=== PATIENT | female | born 1990 | race African-American/Black ===

== ENCOUNTER 2016-07-21 22:29 | Emergency (ER) | payer OTHER ==
[~2016-07-21] VITALS: Ht 149.9 cm; Wt 111.6 kg
[2016-07-21 22:45] VITALS: BP 140/80
--- NOTE | 2016-07-21 23:15 | PHYS DOC ---
Past Medical History Past Medical History: Schizophrenia Past Surgical History: Other Additional Past Surgical Histo: surgical I&D R buttock Alcohol Use: Occasionally Drug Use: Marijuana Adult General Chief Complaint Chief Complaint: WOUND CHECK [facility] HPI Patient is a 25 year old female who presents with concern of wound vac failure or wound vac dressing seal failure. She had large left buttock debridement at [facility] recently and was discharged home yesterday. Her machine was making noise so she called the wound vac company and after some home triage, she was advised to seek medical attention. She did not bring any wound vac or supplies. She still has dressing applied and denies trauma or leaking from dressing. She notes expected pain after procedure to left buttock, achy, constant, worse with movement. Denies f/c, new injury, or any other concerns. Review of Systems Review of Systems Constitutional: Denies fever or chills [] Eyes: Denies change in visual acuity, redness, or eye pain [] HENT: Denies nasal congestion or sore throat [] Respiratory: Denies cough or shortness of breath [] Cardiovascular: No additional information not addressed in HPI [] GI: Denies abdominal pain, nausea, vomiting, bloody stools or diarrhea [] : Denies dysuria or hematuria [] Musculoskeletal: Denies back pain or joint pain [] Integument: Denies rash or skin lesions [] Neurologic: Denies headache, focal weakness or sensory changes [] Endocrine: Denies polyuria or polydipsia [] Allergies Allergies Allergies Coded Allergies Type Severity Reaction Last Updated Verified No Known Drug Allergies 07/21/16 No Physical Exam Physical Exam Constitutional: Well developed, well nourished, no acute distress, non-toxic appearance. [] HENT: Normocephalic, atraumatic, bilateral external ears normal, oropharynx moist, nose normal. [] Eyes: PERRLA, EOMI. [] Neck: Normal range of motion, supple. [] Cardiovascular:Heart rate regular rhythm [] Lungs & Thorax: Bilateral breath sounds clear to auscultation [] Abdomen: Bowel sounds normal, soft, no tenderness. [] Skin: Warm, dry, no erythema, no rash. Large left buttock wound vac dressing in place with no evidence of leaking or surrounding skin infection [] Back: Normal ROM. [] Extremities: ROM intact, no edema. [] Neurologic: Alert and oriented X 3, normal motor function, normal sensory function, no focal deficits noted. [] Psychologic: Affect normal, judgement normal, mood normal. [] Current Patient Data Vital Signs Vital Signs Date Time Temp Pulse Resp B/P Pulse Ox O2 Delivery O2 Flow Rate FiO2 07/21/16 22:45 98.1 71 18 140/80 96 Room Air 98.1 Course & Med Decision Making Course & Med Decision Making Seal could not be checked due to her not bringing her machine. I encouraged her to get her machine and wound vac supplies and call her on-call surgeon for help or return to the ED for help. She understood and agreed with plan. Dragon Disclaimer Dragon Disclaimer This electronic medical record was generated, in whole or in part, using a voice recognition dictation system. Departure Departure Impression: Primary Impression: Encounter for management of vacuum-assisted closure (VAC) of wound Additional Impression: Left buttock pain Disposition: 01 HOME, SELF-CARE Condition: STABLE Referrals: UNKNOWN PCP NAME (PCP) Patient Instructions: Vacuum-Assisted Closure Therapy Home Guide Additional Instructions: Call your surgeon or wound care clinic for wound VAC assistance. Return for any concerns. Problem Qualifiers Max ANDERSON MD Jul 21, 2016 23:15
== END 2016-07-21 23:20 | disposition home or self-care (01) ==
LOC: ER 22:29
DX: Z48.00 Encounter for change or removal of nonsurgical wound dressing (principal); M54.89 Other dorsalgia; F12.10 Cannabis abuse, uncomplicated
CPT/HCPCS: 99281

== ENCOUNTER 2018-11-06 10:50 | Emergency (ER) | payer OTHER ==
[~2018-11-06] VITALS: Ht 149.9 cm; Wt 102.5 kg
[2018-11-06] MEDS ORDERED: IV NORMAL SALINE 1000ML BAG 1,000 ML IV ONE (11:00)
[2018-11-06] MEDS ORDERED: ONDANSETRON PF 4 MG/2 ML VIAL. IV ONE (11:00)
[2018-11-06 11:12] LABS: BILIRUBIN,URINE MODERATE (NEG); CLARITY,URINE TURBID; NITRITE,URINE POSITIVE (NEG); PH,URINE 5.5; PROTEIN,URINE >=300 mg/dL (NEG-TRACE)
--- NOTE | 2018-11-06 11:22 | PHYS DOC ---
Past Medical History Past Medical History: Schizophrenia (ROSA ISELA FALL APRN) Past Surgical History: , Other Additional Past Surgical Histo: surgical I&D R buttock (ROSA ISELA FALL APRN) Alcohol Use: Occasionally Drug Use: Marijuana, Methamphetamine Social History Narrative: K-2 (EUFEMIAROSA ISELA FLORES) Adult General Chief Complaint Chief Complaint: ABDOMINAL PAIN HPI HPI Patient is a 28 year old female with history of schizophrenia, drug use, who presents to the ED today requesting detox from meth and K 2 use. Patient states she has use Meth and K 2 inn the last 3 days. She states she has been trying to self detox but is currently experiencing nausea, vomiting as well as left upper quadrant pain. Rates the pain as mild worse when she eats. Denies any alcohol use. (ROSA ISELA FALL APRN) Review of Systems Review of Systems Constitutional: Denies fever or chills [] Eyes: Denies change in visual acuity, redness, or eye pain [] HENT: Denies nasal congestion or sore throat [] Respiratory: Denies cough or shortness of breath [] Cardiovascular: No additional information not addressed in HPI [] GI: Denies abdominal pain, nausea, vomiting, bloody stools or diarrhea [] : Denies dysuria or hematuria [] Musculoskeletal: Denies back pain or joint pain [] Integument: Denies rash or skin lesions [] Neurologic: Denies headache, focal weakness or sensory changes [] Psych: Detox for meth and K 2 use All other systems were reviewed and found to be within normal limits, except as documented in this note. (ROSA ISELA FALL APRN) Current Medications Current Medications Current Medications Medications (Trade) Dose Ordered Sig/Sathya Start Time Stop Time Status Last Admin Dose Admin Ceftriaxone Sodium (Rocephin) 1 gm 1X ONCE 11/06/18 11:45 11/06/18 11:46 DC 11/06/18 11:45 1 GM Ondansetron HCl (Zofran) 4 mg 1X ONCE 11/06/18 11:00 11/06/18 11:07 DC 11/06/18 11:15 4 MG Sodium Chloride 1,000 ml @ 1,000 mls/hr 1X ONCE 11/06/18 11:00 11/06/18 11:59 DC 11/06/18 11:15 1,000 MLS/HR (MARSHALL RODGERS MD) Allergies Allergies Allergies Coded Allergies Type Severity Reaction Last Updated Verified No Known Drug Allergies 07/21/16 No (MARSHALL RODGERS MD) Physical Exam Physical Exam Constitutional: Well developed, well nourished, no acute distress, non-toxic appearance. [] HENT: Normocephalic, atraumatic, bilateral external ears normal, oropharynx moist, no oral exudates, nose normal. [] Eyes: PERRLA, EOMI, conjunctiva normal, no discharge. [] Neck: Normal range of motion, no tenderness, supple, no stridor. [] Cardiovascular:Heart rate regular rhythm, no murmur [] Lungs & Thorax: Bilateral breath sounds clear to auscultation [] Abdomen: Bowel sounds normal, soft, no tenderness, no masses, no pulsatile masses. [] Skin: Warm, dry, no erythema, no rash. [] Back: No tenderness, no CVA tenderness. [] Extremities: No tenderness, no cyanosis, no clubbing, ROM intact, no edema. [] Neurologic: Alert and oriented X 3, normal motor function, normal sensory function, no focal deficits noted. Cranial nerves II through XII intact Psychologic: flat affect, restless, constantly moving around in the bed. (ROSA ISELA FALL APRN) Current Patient Data Vital Signs Vital Signs Date Time Temp Pulse Resp B/P (MAP) Pulse Ox O2 Delivery O2 Flow Rate FiO2 11/06/18 13:12 85 16 155/96 (115) 100 11/06/18 10:55 98.8 Room Air 98.8 (MARSHALL RODGERS MD) Lab Values Laboratory Tests Test 11/06/18 11:00 11/06/18 11:05 Urine Collection Type Void Urine Color Yellow Urine Clarity Turbid Urine pH 5.5 Urine Specific [place] >=1.030 Urine Protein >=300 mg/dL (NEG-TRACE) Urine Glucose (UA) 100 mg/dL (NEG) Urine Ketones (Stick) 15 mg/dL (NEG) Urine Blood Moderate (NEG) Urine Nitrite Positive (NEG) Urine Bilirubin Moderate (NEG) Urine Urobilinogen Dipstick 2.0 mg/dL (0.2 mg/dL) Urine Leukocyte Esterase Small (NEG) Urine RBC 1-2 /HPF (0-2) Urine WBC 5-10 /HPF (0-4) Urine Squamous Epithelial Cells Mod /LPF Urine Bacteria Many /HPF (0-FEW) Urine Hyaline Casts Many /HPF Urine Mucus Marked /LPF Urine Opiates Screen Neg (NEG) Urine Methadone Screen Neg (NEG) Urine Barbiturates Neg (NEG) Urine Phencyclidine Screen Neg (NEG) Urine Amphetamine/Methamphetamine Pos (NEG) Urine Benzodiazepines Screen Neg (NEG) Urine Cocaine Screen Neg (NEG) Urine Cannabinoids Screen Pos (NEG) Urine Ethyl Alcohol Neg (NEG) White Blood Count 8.0 x10^3/uL (4.0-11.0) Red Blood Count 5.36 x10^6/uL (3.50-5.40) Hemoglobin 15.6 g/dL (12.0-15.5) H Hematocrit 46.5 % (36.0-47.0) Mean Corpuscular Volume 87 fL (79-100) Mean Corpuscular Hemoglobin 29 pg (25-35) Mean Corpuscular Hemoglobin Concent 34 g/dL (31-37) Red Cell Distribution Width 16.4 % (11.5-14.5) H Platelet Count 362 x10^3/uL (140-400) Neutrophils (%) (Auto) 58 % (31-73) Lymphocytes (%) (Auto) 28 % (24-48) Monocytes (%) (Auto) 12 % (0-9) H Eosinophils (%) (Auto) 1 % (0-3) Basophils (%) (Auto) 1 % (0-3) Neutrophils # (Auto) 4.7 x10^3uL (1.8-7.7) Lymphocytes # (Auto) 2.2 x10^3/uL (1.0-4.8) Monocytes # (Auto) 1.0 x10^3/uL (0.0-1.1) Eosinophils # (Auto) 0.0 x10^3/uL (0.0-0.7) Basophils # (Auto) 0.1 x10^3/uL (0.0-0.2) POC Urine HCG, Qualitative Hcg negative (Negative) Sodium Level 139 mmol/L (136-145) Potassium Level 3.6 mmol/L (3.5-5.1) Chloride Level 100 mmol/L (98-107) Carbon Dioxide Level 23 mmol/L (21-32) Anion Gap 16 (6-14) H Blood Urea Nitrogen 23 mg/dL (7-20) H Creatinine 1.3 mg/dL (0.6-1.0) H Estimated GFR (Cockcroft-Gault) 59.0 BUN/Creatinine Ratio 18 (6-20) Glucose Level 100 mg/dL (70-99) H Calcium Level 11.3 mg/dL (8.5-10.1) H Total Bilirubin 0.9 mg/dL (0.2-1.0) Aspartate Amino Transferase (AST) 58 U/L (15-37) H Alanine Aminotransferase (ALT) 73 U/L (14-59) H Alkaline Phosphatase 105 U/L (46-116) Total Protein 9.6 g/dL (6.4-8.2) H Albumin 4.8 g/dL (3.4-5.0) Albumin/Globulin Ratio 1.0 (1.0-1.7) Lipase 75 U/L (73-393) Salicylates Level 5.1 mg/dL (2.8-20.0) Salicylate Last Dose Date Unknown Salicylate Last Dose Time Unknown Acetaminophen Level < 2 mcg/ml (10-30) L Acetaminophen Last Dose Date Unknown Acetaminophen Last Dose Time Unknown Ethyl Alcohol Level < 10 mg/dL (0-10) Laboratory Tests 11/06/18 11:05 Laboratory Tests 11/06/18 11:05 (MARSHALL RODGERS MD) EKG EKG [] (ROSA ISELA FALL APRN) Radiology/Procedures Radiology/Procedures [] (ROSA ISELA FALL APRN) Course & Med Decision Making Course & Med Decision Making Pertinent Labs and Imaging studies reviewed. (See chart for details) This is a 28-year-old female patient presented to the ED today requesting detox from meth and caked to use. Currently complaining of left upper quadrant abdominal pain with nausea and vomiting since she tried herself detox program. CBC with normal WBC, CMP with AST of 58, AST of 73, creatinine 1.8, BUN 23. Drug screen positive for meth and marijuana. Urine positive for UTI. Patient was given a liter fluid, also given Rocephin IV in the ED. Riaz from the PAT team came and evaluated patient. They decided patient is going to [facility] detox) we got patient a cab voucher. He also requested we give patient a prescription for Librium. Prescription for cep halexin was also provided. (ROSA ISELA FALL APRN) Course & Med Decision Making This patient was seen by an DEREK. I did not see or treat the patient unless otherwise specified. (MARSHALL RODGERS MD) Dragon Disclaimer Dragon Disclaimer This electronic medical record was generated, in whole or in part, using a voice recognition dictation system. (ROSA ISELA FALL APRN) Departure Departure Impression: Primary Impression: Urinary tract infection Additional Impressions: Drug abuse Transaminitis Disposition: 05 TRANSFER OTHER Condition: STABLE Referrals: UNKNOWN PCP NAME (PCP) [facility] adult detox Patient Instructions: Drug Abuse and Addiction-[employer], Urinary Tract Infection Additional Instructions: You were evaluated in the emergency room and discharged with plan to go to [facility] detox center. You also have urinary tract infection, complete your antibiotics. Scripts Cephalexin (CEPHALEXIN) 500 Mg Tablet 1 TAB PO BID, #14 TAB Prov: ROSA ISELA FALL APRN 11/06/18 Problem Qualifiers Primary Impression: Urinary tract infection Urinary tract infection type: site unspecified Hematuria presence: without hematuria Qualified Codes: N39.0 - Urinary tract infection, site not specified ROSA ISELA FALL APRN November 06, 2018 11:22 MARSHALL RODGERS MD November 06, 2018 17:24
[2018-11-06 11:24] LABS: BASO # 0.1 x10^3/uL (0.0-0.2); BASO % 1 % (0-3); EOS % 1 % (0-3); HEMATOCRIT 46.5 % (36.0-47.0); HEMOGLOBIN 15.6 g/dL (12.0-15.5); LYMPH # 2.2 x10^3/uL (1.0-4.8); LYMPH % 28 % (24-48); MEAN CORPUSCULAR HEMOGLOBIN 29 pg (25-35); MEAN CORPUSCULAR HGB CONC 34 g/dL (31-37); MEAN CORPUSCULAR VOLUME 87 fL (79-100); MONO % 12 % (0-9); NEUT # 4.7 x10^3uL (1.8-7.7); NEUT % 58 % (31-73); PLATELET COUNT 362 x10^3/uL (140-400); RED BLOOD COUNT 5.36 x10^6/uL (3.50-5.40); RED CELL DISTRIBUTION WIDTH 16.4 % (11.5-14.5)
[2018-11-06 11:26] LABS: BACTERIA,URINE MANY /HPF (0-FEW); COLOR,URINE YELLOW; HYALINE CASTS, URINE MANY /HPF; SQUAMOUS EPITHELIAL CELL,UR MOD /LPF
[2018-11-06 11:33] LABS: BARBITURATES NEG (NEG); BENZODIAZEPINES NEG (NEG); CANNABINOIDS POS (NEG); COCAINE NEG (NEG); METHADONE NEG (NEG); OPIATES NEG (NEG); PHENCYCLIDINE NEG (NEG)
[2018-11-06 11:33] LABS: CALCIUM 11.3 mg/dL (8.5-10.1); CREATININE 1.3 mg/dL (0.6-1.0); POTASSIUM 3.6 mmol/L (3.5-5.1)
[2018-11-06 11:37] LABS: AMPHETAMINE/METHAMPHETAMINE POS (NEG)
[2018-11-06 11:38] LABS: ACETAMIN < 2 mcg/ml (10-30); ETHANOL < 10 mg/dL (0-10); SALIC 5.1 mg/dL (2.8-20.0)
[2018-11-06 11:39] LABS: ALBUMIN 4.8 g/dL (3.4-5.0); TOTAL BILIRUBIN 0.9 mg/dL (0.2-1.0); TOTAL PROTEIN 9.6 g/dL (6.4-8.2)
[2018-11-06] MEDS ORDERED: cefTRIAXone IV Push 1 GM VIAL. IVP ONE (11:45)
[2018-11-06 13:12] VITALS: BP 155/96
[2018-11-06] MEDS ORDERED: CEPH500T PO (13:19)
== END 2018-11-06 13:39 | disposition home or self-care (01) ==
LOC: ER 10:50
DX: N39.0 Urinary tract infection, site not specified (principal); F15.10 Other stimulant abuse, uncomplicated; F12.10 Cannabis abuse, uncomplicated; R74.0 Nonspecific elevation of levels of transaminase and lactic acid dehydrogenase [LDH]; R11.2 Nausea with vomiting, unspecified; F20.9 Schizophrenia, unspecified
CPT/HCPCS: 36415; 80053; 80307; 80329; 81001; 81025; 83690; 85025; 96361; 96374; 96375; 99285; G0480; J0696; J2405; J7030

== ENCOUNTER 2019-12-15 12:33 | Emergency (ER) | payer OTHER ==
[~2019-12-15] VITALS: Ht 149.9 cm; Wt 110.3 kg
[~2019-12-15 12:33] MED LIST: CEPH500T PO
[2019-12-15 12:45] VITALS: BP 118/58
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
== END 2019-12-15 13:35 | disposition home or self-care (01) ==
LOC: ER 12:33
DX: S61.217D Laceration without foreign body of left little finger without damage to nail, subsequent encounter (principal); F20.9 Schizophrenia, unspecified; F17.200 Nicotine dependence, unspecified, uncomplicated; W26.0XXD Contact with knife, subsequent encounter
CPT/HCPCS: 99281

== ENCOUNTER 2020-03-20 10:14 | Emergency (ER) | payer OTHER ==
[~2020-03-20] VITALS: Ht 144.8 cm; Wt 113.6 kg
[2020-03-20 10:21] VITALS: BP 182/86
[2020-03-20] MEDS ORDERED: PROPARACAINE 0.5% OPHTH SOLUTION 15ML BOTTLE. OU ONE (10:30)
[2020-03-20] MEDS ORDERED: FLUORESCEIN OPHTH TEST STRIP. OU ONE (10:30)
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
== END 2020-03-20 11:43 | disposition short-term general hospital (02) ==
LOC: ER 10:14
DX: S05.12XA Contusion of eyeball and orbital tissues, left eye, initial encounter (principal); F20.9 Schizophrenia, unspecified; F17.200 Nicotine dependence, unspecified, uncomplicated; F12.90 Cannabis use, unspecified, uncomplicated; Z98.890 Other specified postprocedural states; Y08.89XA Assault by other specified means, initial encounter; Y93.89 Activity, other specified; Y92.89 Other specified places as the place of occurrence of the external cause; Y99.8 Other external cause status
CPT/HCPCS: 70450; 70480; 81025; 99285

== ENCOUNTER 2020-08-16 20:51 | Emergency (ER) | payer OTHER ==
[~2020-08-16] VITALS: Ht 149.9 cm; Wt 119.1 kg
[2020-08-16 20:52] VITALS: BP 151/90
[2020-08-16] MEDS ORDERED: ONDANSETRON ODT 4 MG TAB.RAPDIS. PO ONE (21:45)
[2020-08-16] MEDS ORDERED: HYDROcodone/APAP 5/325MG 1 TAB TABLET PO ONE (21:45)
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
[2020-08-16] MEDS ORDERED: IBUP-1007 PO (22:26)
[2020-08-16] MEDS ORDERED: CYCL10TA2 PO (22:26)
[2020-08-16] MEDS ORDERED: HYDR-2759 PO (22:26)
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
== END 2020-08-16 22:30 | disposition home or self-care (01) ==
LOC: ER 20:51 → EEVIPCON 20:51 → ER 22:30
DX: S00.83XA Contusion of other part of head, initial encounter (principal); S10.83XA Contusion of other specified part of neck, initial encounter; F20.9 Schizophrenia, unspecified; F17.200 Nicotine dependence, unspecified, uncomplicated; F12.90 Cannabis use, unspecified, uncomplicated; F19.90 Other psychoactive substance use, unspecified, uncomplicated; Z98.890 Other specified postprocedural states; Y08.89XA Assault by other specified means, initial encounter; Y93.89 Activity, other specified; Y92.89 Other specified places as the place of occurrence of the external cause; Y99.8 Other external cause status
CPT/HCPCS: 70450; 72125; 81025; 99285